=== PATIENT | male | born 1995 | race Caucasian/White ===

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

== ENCOUNTER 2017-05-22 20:42 | Emergency (ER) | payer MEDICAID ==
[2017-05-22] MEDS ORDERED: HYDROmorphONE/DILAUDID 1 MG/ML INJ IVP ONE (20:44)
[2017-05-22] MEDS ORDERED: fentaNYL 100 MCG/2 ML INJ IVP ONE ×2 (20:47→21:02)
[2017-05-22] MEDS ORDERED: fentaNYL 100 MCG/2 ML INJ ONE (20:55)
[2017-05-22] MEDS ORDERED: KETAMINE 100 MG/10 ML SYR ONE (21:04)
[2017-05-22] MEDS ORDERED: KETAMINE 100 MG/10 ML SYR IVP ONE (21:05)
--- NOTE | 2017-05-22 21:08 | EDPHY ---
H & P Stated Complaint: sohulder dilocation - Personal History Current Tetanus/Diphtheria Vaccine: Yes Current Tetanus Diphtheria and Acellular Pertussis (TDAP): Yes - Medical/Surgical History Hx Asthma: No Hx Chronic Respiratory Disease: No Hx Diabetes: No Hx Cardiac Disease: No Hx Renal Disease: No Hx Cirrhosis: No Hx Alcoholism: No Hx HIV/AIDS: No Hx Splenectomy or Spleen Trauma: No Other PMH: PMH: chronic sohulder dislocation - Social History Smoking Status: Never smoked Time Seen by Provider: 05/22/17 20:45 HPI/ROS: Chief complaint: Left shoulder dislocation History of present illness: This is a 21-year-old male brought to the emergency department by EMS for left shoulder dislocation. Patient has a history of recurrent dislocations. He has dislocated the shoulder 3 times prior. He states he was just putting on his jacket this evening when he felt a pop out of place. Since then pain and difficulty moving the shoulder. He denies direct trauma. He denies associated signs or symptoms including no paresthesias or abnormal coolness. No report of other discomfort. Review of systems: A 10 point review of systems was obtained and other than described above was negative (Carrillo Ferguson) - Physical Exam Exam: General Appearance: Alert and no distress. Eyes: Pupils equal and round no injection. ENT: Oropharynx unremarkable. Respiratory: Chest is non tender, lungs are clear to auscultation. Cardiovascular: regular rate and rhythm. Radial pulses 2+ bilaterally. Musculoskeletal: Neck is supple and non tender. Obvious deformity of the left shoulder, he cannot move it, self splinting. He is moving the left elbow, wrist and digits. Skin: No rashes or lesions. Neurological: Sensation intact throughout the left arm. (Carrillo Ferguson) Constitutional: Initial Vital Signs Temperature (C) 37.1 C 05/22/17 20:43 Heart Rate 73 05/22/17 20:43 Respiratory Rate 18 05/22/17 20:43 Blood Pressure 139/87 H 05/22/17 20:43 O2 Sat (%) 96 05/22/17 20:43 O2 Delivery Mode Room Air O2 (L/minute) 2 Allergies/Adverse Reactions: 2 unk abx Allergy (Uncoded 11/25/16 21:43) Home Medications: Medication Instructions Recorded OLANZapine [Zyprexa] 10 mg PO 09/25/16 Acetaminophen/Codeine 300/30Mg 1 each PO Q6 PRN #15 tab 10/28/16 [Tylenol #3 (*)] traZODone 10/28/16 IBUPROFEN 11/25/16 Medical Decision Making - Diagnostics Imaging: I viewed and interpreted images myself ED Course/Re-evaluation: Patient is seen in conjunction with my secondary supervising physician Dr. Eitan Hensley. Patient presents to the emergency department for a left shoulder dislocation. His arm appears neurovascularly intact. It is reduced in conjunction with my attending physician Dr. Eitan Hensley. Please see his note for complete details. Post reduction he remains neurovascularly intact. He is placed in a sling. He is discharged home. Referred to Orthopedics for recheck. Return precautions are given. Patient voiced understanding and agreement with plan. (Carrillo Ferguson) Differential Diagnosis: Included but not limited to contusion, sprain or strain, bony fracture, joint dislocation (Carrillo Ferguson) Other Provider: Independent physician evaluation I evaluated and participated in the management of the patient. I also evaluated the patient independently. My co-signature indicates that I have reviewed this chart and I agree with the findings and plan of care as documented. My personal H&P findings include: The patient presents to the ED with a recurrent left shoulder dislocation. The patient was noted to be neurologically intact. The patient had an IV established. He received 250 mcg of fentanyl. The patient received 15 mg of IV ketamine for adjunctive analgesia. Procedure: Dislocation reduction. Indication: Dislocation The shoulder was reduced in the usual fashion without complications. Post reduction the patient's neurovascular exam is normal. Post reduction x-ray demonstrates reduction of the joint to the anatomic position. The procedure was performed by myself. (Eric Hensley) - Data Points Medications Given: Discontinued Medications Fentanyl (Sublimaze) 100 mcg IVP EDNOW ONE Stop: 05/22/17 20:48 Last Admin: 05/22/17 20:55 Dose: 100 mcg Fentanyl (Sublimaze) 50 mcg IVP EDNOW ONE Stop: 05/22/17 21:03 Last Admin: 05/22/17 21:02 Dose: 50 mcg Hydromorphone HCl (Dilaudid) 0.5 mg IVP EDNOW ONE Stop: 05/22/17 20:45 Last Admin: 05/22/17 21:11 Dose: Not Given Ketamine HCl (Ketamine) 25 mg IVP EDNOW ONE Stop: 05/22/17 21:06 Last Admin: 05/22/17 21:12 Dose: 25 mg Departure - Departure Disposition: Home, Routine, Self-Care Clinical Impression: Shoulder dislocation Qualifiers: Encounter type: initial encounter Laterality: left Qualified Code(s): S43.005A - Unspecified dislocation of left shoulder joint, initial encounter Condition: Good Instructions: Shoulder Dislocation (ED) Additional Instructions: Follow-up with orthopedics for continued evaluation and care Use ibuprofen 600 mg 3 times a day for the next 2-3 days for pain control If symptoms worsen or new symptoms develop return to the emergency room for recheck Referrals: Patient,NotPresent [Unknown] - As per Instructions Dirk Perez MD [Medical Doctor] - As per Instructions
[2017-05-22 22:03] VITALS: BP 112/71
[2017-05-22 22:25] VITALS: PULSE 56; RESP 16; TEMP 98.6; O2SAT 96
== END 2017-05-22 22:15 | disposition home or self-care (01) ==
LOC: EDUNIT#
PROC: 0RSKXZZ Reposition Left Shoulder Joint, External Approach (ICD-10-PCS; principal; 2017-05-22)
DX: M24.412 Recurrent dislocation, left shoulder (principal)
CPT/HCPCS: 96374; J3010; L3980

== ENCOUNTER 2017-10-18 18:09 | Emergency (ER) | payer MEDICAID ==
[2017-10-18] MEDS ORDERED: fentaNYL 100 MCG/2 ML INJ ONE (18:18)
[2017-10-18] MEDS ORDERED: fentaNYL 100 MCG/2 ML INJ IVP ONE (18:21)
[2017-10-18] MEDS ORDERED: KETAMINE 200 MG/20 ML VIAL ONE (18:29)
--- NOTE | 2017-10-18 18:33 | EDPHY ---
H & P Stated Complaint: ROLLED OVER IN BED, DISLOCATED LEFT SHOULDER Time Seen by Provider: 10/18/17 18:25 HPI/ROS: Chief complaint: Left shoulder dislocation History of present illness: This is a 21-year-old male who presents to the emergency department for left shoulder dislocation. Patient has a history of recurrent dislocations of both shoulders. He states he was just rolling over in bed when it slipped out of place. Since then he has had pain, inability to move it. He denies direct trauma. He denies abnormal coolness or paresthesias in the arm. No other complaints. EMS has provided him with 100 mcg of fentanyl. - Medical/Surgical History Hx Asthma: No Hx Chronic Respiratory Disease: No Hx Diabetes: No Hx Cardiac Disease: No Hx Renal Disease: No Hx Cirrhosis: No Hx Alcoholism: No Hx HIV/AIDS: No Hx Splenectomy or Spleen Trauma: No Other PMH: bipolar, AUTISUM - Social History Smoking Status: Never smoked - Physical Exam Exam: General: Alert, nontoxic Skin: No lesions consistent with trauma to the left upper extremity Musculoskeletal: Obvious deformity left upper extremity, he does not want move the shoulder secondary to pain. He can move the elbow, wrist and fingers. Vascular: Radial pulses 2+. Capillary refill brisk in the left hand. Neurologic: Sensation intact throughout the left arm and hand Constitutional: Initial Vital Signs Temperature (C) 36.8 C 10/18/17 18:22 Heart Rate 80 10/18/17 18:22 Respiratory Rate 16 10/18/17 18:22 Blood Pressure 147/81 H 10/18/17 18:22 O2 Sat (%) 96 10/18/17 18:22 O2 Delivery Mode Room Air Allergies/Adverse Reactions: 2 unk abx Allergy (Uncoded 11/25/16 21:43) Home Medications: Medication Instructions Recorded OLANZapine [Zyprexa] 10 mg PO 09/25/16 Acetaminophen/Codeine 300/30Mg 1 each PO Q6 PRN #15 tab 10/28/16 [Tylenol #3 (*)] traZODone 10/28/16 IBUPROFEN 11/25/16 Hydrocodone/APAP 5/325 [[place] 1 tab PO Q6H #4 tab 10/18/17 5/325 (*)] Medical Decision Making - Diagnostics Imaging Results: Imaging Impressions Shoulder X-Ray 10/18/17 18:12 Impression: Anterior left shoulder dislocation. Imaging: I viewed and interpreted images myself Procedures: Procedure: Dislocation reduction. The dislocation of the left shoulder was reduced using massage and traction technique without complications. Post reduction the patient's neurovascular exam is normal. Post reduction x-ray demonstrates reduction of the joint to the anatomic position. The procedure was performed by myself. Patient placed in a sling. He remains neurovascularly intact. ED Course/Re-evaluation: Patient seen under the supervision of my secondary supervising physician Dr. Eitan Hensley. Patient presents to the emergency department for left shoulder dislocation. This is confirmed by x-ray. He is reduced. Post reduction films show good alignment. He remains neurovascularly intact. He is discharged home. Home care is discussed. He is referred to Orthopedics for recheck. Return precautions are given. Differential Diagnosis: Included but not limited to contusion, sprain or strain, bony fracture, joint dislocation - Data Points Medications Given: Discontinued Medications Fentanyl (Sublimaze) 100 mcg IVP EDNOW ONE Stop: 10/18/17 18:22 Last Admin: 10/18/17 18:22 Dose: 100 mcg Ketorolac Tromethamine (Toradol) 30 mg IVP EDNOW ONE Stop: 10/18/17 18:36 Last Admin: 10/18/17 18:36 Dose: 30 mg Departure - Departure Disposition: Home, Routine, Self-Care Clinical Impression: Shoulder dislocation Qualifiers: Encounter type: initial encounter Laterality: left Qualified Code(s): S43.005A - Unspecified dislocation of left shoulder joint, initial encounter Condition: Good Instructions: Shoulder Dislocation (ED) Additional Instructions: Follow-up with an orthopedic doctor for continued evaluation and care this week or next week In regards to pain control see the following: Use ibuprofen [600] mg [3] times a day for the next 2-3 days for pain In addition You have been prescribed [[place]] for pain. [[place]] contains Tylenol, do not take extra Tylenol/acetaminophen/Apap with it. It is sedating. If symptoms worsen or new symptoms develop return to the emergency room for recheck Referrals: Patient,NotPresent [Primary Care Provider] - As per Instructions Meche kSelton MD [Medical Doctor] - As per Instructions [facility],. [Clinic] - As per Instructions Prescriptions: Hydrocodone/APAP 5/325 [[place] 5/325 (*)] 1 tab PO Q6H #4 tab
[2017-10-18] MEDS ORDERED: KETOROLAC 30 MG/1 ML SDV ONE (18:34)
[2017-10-18] MEDS ORDERED: KETOROLAC 30 MG/1 ML SDV IVP ONE (18:35)
[2017-10-18 19:23] VITALS: BP 121/65
== END 2017-10-18 19:23 | disposition home or self-care (01) ==
LOC: EDUNIT#
PROC: 0RSKXZZ Reposition Left Shoulder Joint, External Approach (ICD-10-PCS; principal; 2017-10-18)
DX: S43.015A Anterior dislocation of left humerus, initial encounter (principal); X50.9XXA Other and unspecified overexertion or strenuous movements or postures, initial encounter; Y99.8 Other external cause status; Y93.89 Activity, other specified
CPT/HCPCS: 96374; J1885; J3010